=== PATIENT | male | born 1940 | race Caucasian/White ===

== ENCOUNTER 2017-11-09 17:41 | Emergency (ER) | payer OTHER, MEDICARE ==
[~2017-11-09] VITALS: Ht 180.3 cm; Wt 86.2 kg
--- NOTE | 2017-11-09 18:09 | ED GI/GU/ABDOMINAL COMPLAINT ---
History of Present Illness General Chief Complaint: Male Genitourinary Problems Stated Complaint: PAIN IN GROIN AREA Source: patient Exam Limitations: no limitations Vital Signs & Intake/Output Vital Signs & Intake/Output Vital Signs Date Time Temp Pulse Resp B/P B/P Pulse O2 O2 Flow FiO2 Mean Ox Delivery Rate 11/09 2154 97.8 80 18 150/80 94 Room Air 11/09 1950 98.0 80 18 152/83 93 Room Air 11/09 1748 97.6 106 18 170/99 93 Room Air Allergies Coded Allergies: No Known Allergies (11/09/17) Reconcile Medications Tamsulosin HCl (Flomax) 0.4 MG CAP.ER.24H 1 CAP PO DAILY Urinary retention Triage Note: PT TO ER C/C PUBIC PRESSURE AND INABILITY TO VOID SINCE LAST NIGHT. DENIES N/V/D. Triage Nurses Notes Reviewed? yes HPI: 68-year-old male presents emergency department complaining of urinary retention. States he last peed this morning. He is tried several times to use the bathroom but has been unsuccessful. This has never happened to him before. States he feels extremely bloated and its starting to cause pain. His has been giving him cranberry juice and encouraging him to drink fluids because they think it may be a kidney stone. He denies any nausea or vomiting. No fever chills. No chest pain or shortness of breath. No leg swelling. No previous abdominal surgeries. States he felt completely fine yesterday. (Sean Dawson PA-C) Past History Travel History Traveled to [place] past 21 day No Medical History Any Pertinent Medical History? see below for history Respiratory: COPD Surgical History Surgical History: none Psychosocial History What is your primary language Italian Tobacco Use: Quit >30 days ago Family History Hx Contributory? No (Sean Dawson PA-C) Review of Systems Review of Systems Constitutional: Reports: no symptoms. EENTM: Reports: no symptoms. Respiratory: Reports: no symptoms. Cardiovascular: Reports: no symptoms. GI: Reports: see HPI, abdominal pain, bloating, distention. Genitourinary: Reports: see HPI. Musculoskeletal: Reports: no symptoms. Skin: Reports: no symptoms. All Other Systems: Reviewed and Negative (Sean Dawson PA-C) Physical Exam Physical Exam General Appearance: well developed/nourished, mildly uncomfortable from pain Head: atraumatic, normal appearance Eyes: Bilateral: normal appearance, PERRL, EOMI. Ears, Nose, Throat, Mouth: hearing grossly normal Neck: normal inspection, supple Respiratory: normal breath sounds, no respiratory distress, quiet respiration, lungs clear Cardiovascular: regular rate/rhythm Gastrointestinal: Mild suprapubic tenderness and distension. No mcburneys point tenderness, neg murphys. Rectal: heme negative stool, Non tender prostate. Extremities: normal range of motion Skin: intact, normal color Core Measures ACS in differential dx? No Sepsis Present: No Sepsis Focused Exam Completed? No (Samir SPARKS,Sean) Progress Differential Diagnosis: bowel obstruction, diverticulitis, epididymitis, prostatitis, pyelonephritis, SBO, ureterolithiasis, urinary retention, urethritis, UTI/pyelo Plan of Care: Orders Procedure Date/time Status COMPREHENSIVE METABOLIC PANEL 11/09 1828 Complete CBC WITHOUT DIFFERENTIAL 11/09 1828 Complete Rivera, Insertion/Removal/Asses 11/09 180 Active CULTURE,URINE 11/09 1804 Active URINALYSIS 11/09 1754 Complete Laboratory Tests 11/09/17 1858: Anion Gap 11, Estimated GFR > 60, BUN/Creatinine Ratio 14.0, Glucose 92, Calcium 9.1, Total Bilirubin 0.7, AST 22, ALT 25, Alkaline Phosphatase 58, Total Protein 7.4, Albumin 4.0, Globulin 3.4, Albumin/Globulin Ratio 1.2, CBC w Diff NO MAN DIFF REQ, RBC 6.08, MCV 84.6, MCH 27.9, MCHC 33.0, RDW 15.1 H, MPV 8.0, Gran % 82.3 H, Lymphocytes % 8.9 L, Monocytes % 7.4, Eosinophils % 0.9, Basophils % 0.5, Absolute Granulocytes 11.0 H, Absolute Lymphocytes 1.2, Absolute Monocytes 1.0 H, Absolute Eosinophils 0.1, Absolute Basophils 0.1 11/09/17 1848: Urine Color YEL, Urine Clarity HAZY H, Urine pH 6.0, Ur Specific [place] 1.015, Urine Protein NEG, Urine Ketones NEG, Urine Nitrite NEG, Urine Bilirubin NEG, Urine Urobilinogen 0.2, Ur Leukocyte Esterase NEG, Ur Microscopic SEDIMENT EXAMINED, Urine RBC 50-75 H, Urine WBC RARE, Ur Epithelial Cells RARE, Urine Mucus RARE, Urine Hemoglobin LARGE H, Urine Glucose NEG Microbiology 11/10 1847 URINE ROUT: Urine Culture - RECD Diagnostic Imaging: Viewed by Me: CT Scan. Discussed w/RAD: CT Scan. Radiology Impression: PATIENT: MICK VALENCIA PRESENT AGE: 76 PATIENT ACCOUNT NO: [id number] : 38 LOCATION: [facility] ORDERING PHYSICIAN: Sean Dawson PA-C SERVICE DATE: 11/09/17 EXAM TYPE: CAT - CT ABD & PELVIS W IV CONTRAST EXAMINATION: CT ABDOMEN AND PELVIS WITH CONTRAST CLINICAL INFORMATION: Urinary retention. COMPARISON: None TECHNIQUE: Multidetector volumetric imaging was performed of the abdomen and pelvis following IV administration of 95 mL of Optiray 320 intravenous contrast. Sagittal and coronal reformatted images were obtained on the technologist's workstation. DLP: 459.38 mGy-cm FINDINGS: LUNG BASES: Limited images of lower thorax demonstrate moderate pulmonary emphysema. There is a 1.4 cm pleural-based noncalcified pulmonary nodule along the lateral left lower lobe, axial image 4/ 90 from series 2. LIVER, GALLBLADDER, AND BILIARY TREE: The liver is normal in size, shape, and attenuation. No biliary ductal dilatation is present. There is a 0.8 cm hypodensity along the medial aspect of the segment 6 of the liver, better seen on axial image 25/90 from series 2. It is too small to fully characterize. The gallbladder is unremarkable with no evidence of radiopaque gallstones, gallbladder wall thickening, or obvious pericholecystic inflammatory changes. PANCREAS: Unremarkable. SPLEEN: Unremarkable. ADRENAL GLANDS: Unremarkable. KIDNEYS AND URETERS: The kidneys are normal in size, shape, and attenuation. No hydronephrosis or calculi seen. There is a 3.5 cm simple renal cortical cyst from the medial aspect of the mid part of the right kidney. There is mild left perinephric fat stranding which extends inferiorly along the course of the left ureter. The left ureter is prominent with maximal transverse diameter of 0.9 cm at the pelvic inlet. No stone is seen in the course of left ureter. The urinary bladder is empty in the presence of an indwelling catheter. The right ureter is not dilated. No right-sided perinephric fat stranding. The prostate is enlarged, measures about 7.4 x 7.6 x 5.5 cm in CC, AP and transverse diameters. Evaluation of the bladder is limited, empty bladder. GASTROINTESTINAL TRACT: The loops of the small bowel and colon are not dilated. Diverticular disease of the colon noted without evidence of acute diverticulitis. The appendix is not definitely seen. No inflammatory changes to suggest acute appendicitis. ABDOMINAL WALL: No significant hernia is appreciated. LYMPH NODES: No pelvic sidewall, retroperitoneal or mesenteric adenopathy. VASCULAR: Atherosclerotic calcifications of abdominal aorta without aneurysmal dilatation. OSSEOUS STRUCTURES: Narrowing of intervertebral disc space at L3-L4 level with small anterior and posterior marginal osteophytosis represent degenerative disc disease. No aggressive bony lesion. No acute bone fracture. IMPRESSION: Pulmonary emphysema. A 1.4 cm pleural-based noncalcified left lower lobe pulmonary nodule. Further evaluation by comparison with prior chest imaging is advised. If no prior chest imaging is unavailable, chest CT scan evaluation can be considered. Enlarged prostate with impression at the bladder base. The bladder is empty in the presence of indwelling catheter. Prominence of the left ureter and mild left perinephric and periureteric stranding can be due to obstruction. No obstructing stone. Colon diverticulosis without evidence of acute diverticulitis. DICTATED BY: Lewis Rodney MD DATE/TIME DICTATED:2039 MECHANIC MARINE ENGINE:JULISSA DATE/TIME TRANSCRIBED:11/09/172039 CONFIDENTIAL, DO NOT COPY WITHOUT APPROPRIATE AUTHORIZATION. <Electronically signed in Other Vendor System> SIGNED BY: Lewis Rodney MD 11/09/172117 Initial ED EKG: none Comments: Update @ 1800: Bladder scan <999, rivera ordered. Patient had significant urine once Rivera was placed, approximately 1400 cc. He had significant relief of pain after this procedure. Blood work is overall nonactionable. His prostate is nontender to palpation. Although white count is 13.4, I do not feel that he needs to be treated for prostatitis at this time. Exam is consistent with BPH causing urinary retention. This is the first time this patient is ever had urinary retention. He is making a good amount of urine while here in the emergency department. He is very comfortable appearing and in no distress. We will send him home with the Rivera and a leg bag. Will start him on Flomax. We will have him follow-up with urology within 2 days. I did mention the nodule seen on his CAT scan, patient has known about this nodule for over a year now. It is being monitored by his primary doctor. (Sean Dawson PA-C) Departure Departure Disposition: HOME OR SELF CARE Condition: Stable Clinical Impression Primary Impression: Urinary retention Secondary Impressions: Enlarged prostate Referrals: Jagjit Schmidt MD Additional Instructions: Take medications as prescribed. The catheter will need to stay in until you follow up with urology. Frequently empty catheter back. Follow-up with urology within 2 days. Return to emergency department immediately if you develop any new or worsening symptoms. Departure Forms: Customer Survey General Discharge Information Prescriptions: Current Visit Scripts Tamsulosin HCl (Flomax) 1 CAP PO DAILY #30 CAP (Sean Dawson PA-C) PA/ENROLLMENT COORDINATOR Co-Sign Statement Statement: ED Attending supervision documentation- [x] I saw and evaluated the patient. I have also reviewed all the pertinent lab results and diagnostic results. I agree with the findings and the plan of care as documented in the PA's/ENROLLMENT COORDINATOR's documentation. [] I have reviewed the ED Record and agree with the PA's/ENROLLMENT COORDINATOR's documentation. [] Additions or exceptions (if any) to the PAs/ENROLLMENT COORDINATOR's note and plan are summarized below: [] (Kane WARD,Evens Izquierdo)
[2017-11-09 19:33] LABS: ABSOLUTE BASOPHIL COUNT 0.1 /CUMM (0.0-0.2); ABSOLUTE EOSINOPHIL COUNT 0.1 /CUMM (0.0-0.7); ABSOLUTE LYMPH COUNT 1.2 /CUMM (1.2-3.4); BASOPHIL % 0.5 % (0.0-2.0); EOSINOPHIL % 0.9 % (0-5); GRANULOCYTE % 82.3 % (42.2-75.2); HEMATOCRIT 51.4 % (42-52); MEAN CORPUSCULAR HGB 27.9 PG (27.0-31.0); MEAN CORPUSCULAR VOLUME 84.6 FL (80.0-94.0); PLATELET COUNT 252 /CUMM (130-400); RBC DISTRIBUTION WIDTH 15.1 % (11.5-14.5); RED BLOOD CELL CT 6.08 /CUMM (4.70-6.10); WHITE BLOOD CELL COUNT 13.4 /CUMM (4.8-10.8)
--- NOTE | 2017-11-09 21:18 | CT SCAN REPORT ---
EXAMINATION: CT ABDOMEN AND PELVIS WITH CONTRAST CLINICAL INFORMATION: Urinary retention. COMPARISON: None TECHNIQUE: Multidetector volumetric imaging was performed of the abdomen and pelvis following IV administration of 95 mL of Optiray 320 intravenous contrast. Sagittal and coronal reformatted images were obtained on the technologist's workstation. DLP: 459.38 mGy-cm FINDINGS: LUNG BASES: Limited images of lower thorax demonstrate moderate pulmonary emphysema. There is a 1.4 cm pleural-based noncalcified pulmonary nodule along the lateral left lower lobe, axial image 4/90 from series 2. LIVER, GALLBLADDER, AND BILIARY TREE: The liver is normal in size, shape, and attenuation. No biliary ductal dilatation is present. There is a 0.8 cm hypodensity along the medial aspect of the segment 6 of the liver, better seen on axial image 25/90 from series 2. It is too small to fully characterize. The gallbladder is unremarkable with no evidence of radiopaque gallstones, gallbladder wall thickening, or obvious pericholecystic inflammatory changes. PANCREAS: Unremarkable. SPLEEN: Unremarkable. ADRENAL GLANDS: Unremarkable. KIDNEYS AND URETERS: The kidneys are normal in size, shape, and attenuation. No hydronephrosis or calculi seen. There is a 3.5 cm simple renal cortical cyst from the medial aspect of the mid part of the right kidney. There is mild left perinephric fat stranding which extends inferiorly along the course of the left ureter. The left ureter is prominent with maximal transverse diameter of 0.9 cm at the pelvic inlet. No stone is seen in the course of left ureter. The urinary bladder is empty in the presence of an indwelling catheter. The right ureter is not dilated. No right-sided perinephric fat stranding. The prostate is enlarged, measures about 7.4 x 7.6 x 5.5 cm in CC, AP and transverse diameters. Evaluation of the bladder is limited, empty bladder. GASTROINTESTINAL TRACT: The loops of the small bowel and colon are not dilated. Diverticular disease of the colon noted without evidence of acute diverticulitis. The appendix is not definitely seen. No inflammatory changes to suggest acute appendicitis. ABDOMINAL WALL: No significant hernia is appreciated. LYMPH NODES: No pelvic sidewall, retroperitoneal or mesenteric adenopathy. VASCULAR: Atherosclerotic calcifications of abdominal aorta without aneurysmal dilatation. OSSEOUS STRUCTURES: Narrowing of intervertebral disc space at L3-L4 level with small anterior and posterior marginal osteophytosis represent degenerative disc disease. No aggressive bony lesion. No acute bone fracture. IMPRESSION: Pulmonary emphysema. A 1.4 cm pleural-based noncalcified left lower lobe pulmonary nodule. Further evaluation by comparison with prior chest imaging is advised. If no prior chest imaging is unavailable, chest CT scan evaluation can be considered. Enlarged prostate with impression at the bladder base. The bladder is empty in the presence of indwelling catheter. Prominence of the left ureter and mild left perinephric and periureteric stranding can be due to obstruction. No obstructing stone. Colon diverticulosis without evidence of acute diverticulitis.
[2017-11-09] MEDS ORDERED: FLOMAX0.4 M1 PO (21:29)
[2017-11-09 21:54] VITALS: BP 150/80
== END 2017-11-09 21:56 ==
LOC: ERH 17:41
PROVIDERS: Physician Assistant
DX: R33.9 Retention of urine, unspecified (principal); N40.1 Benign prostatic hyperplasia with lower urinary tract symptoms
CPT/HCPCS: 74177; 81001; 87086